=== PATIENT | female | born 1975 | race Caucasian/White ===

== ENCOUNTER 2017-04-19 18:28 | Emergency (ER) | payer MEDICARE, BC ==
[2017-04-19 19:09] VITALS: BP 115/80
[2017-04-19] MEDS ORDERED: Acetaminophen/oxyCODONE 325-5 MG Tab PO STA (19:17)
--- NOTE | 2017-04-19 19:19 | EDM.PDOC ---
ED HPI GENERAL MEDICAL PROBLEM - General Chief Complaint: Lower Extremity Injury/Pain Stated Complaint: CAT BITE Time Seen by Provider: 04/19/17 19:10 Source of Information: Reports: Patient History Limitations: Reports: No Limitations - History of Present Illness INITIAL COMMENTS - FREE TEXT/NARRATIVE: Ynes is a 41 year old female with a hx of MS who presents to the ED today with c /o red leg swelling and redness after getting bit by her cat on Saturday. Patient denies any fever/chills/nausea or vomiting. Patient reports that the spasms in her legs are worse since this started. Onset: Sudden Duration: Day(s): (3) - Related Data Allergies Allergy/AdvReac Type Severity Reaction Status Date / Time erythromycin ethylsuccinate Allergy unknow Verified 04/19/17 19:00 [From E.E.S.] Sulfa (Sulfonamide Allergy unknown Verified 04/19/17 19:00 Antibiotics) Home Meds: Home Meds Baclofen [Lioresal] 1 tab PO DAILY 04/19/17 [History] Venlafaxine [Venlafaxine HCl ER] 1 tab PO DAILY 04/19/17 [History] buPROPion HCl [Bupropion HCl Sr] 1 tab PO DAILY 04/19/17 [History] traZODone 1 tab PO DAILY 04/19/17 [History] Past Medical History Other Musculoskeletal History: MS Psychiatric History: Reports: Depression - Past Surgical History HEENT Surgical History: Reports: Tonsillectomy Social & Family History - Tobacco Use Smoking Status *Q: Never Smoker Review of Systems - Review of Systems Review Of Systems: ROS reveals no pertinent complaints other than HPI. ED EXAM, GENERAL - Physical Exam Exam: See Below Exam Limited By: No Limitations General Appearance: Alert, WD/WN, No Apparent Distress Respiratory/Chest: No Respiratory Distress, Lungs Clear Cardiovascular: Normal Peripheral Pulses, Regular Rate, Rhythm Back Exam: Normal Inspection Extremities: Normal Inspection Neurological: Alert, Oriented Psychiatric: Normal Affect, Normal Mood Skin Exam: Erythema, Other (erythema, mild swelling and three puncture wounds to right LE, consistent with celluitis, marked with skin marker, anterior gupta, approx 8 cm in diameter) Lymphatic: No Adenopathy Course - Vital Signs Last Recorded V/S: Last Vital Signs Temp 37.1 C 04/19/17 19:07 Pulse 86 04/19/17 19:07 Resp 14 04/19/17 19:07 BP 115/80 04/19/17 19:07 Pulse Ox 98 04/19/17 19:07 Ynes is a 41 year old female who presents to the ED today with c/o redness and warmth to her right lower extremity. Patient was bit by her 15 year old cat on Saturday, symptoms started this morning. Patient denies any systemic symptoms to suggest sepsis or SIRS. Patient is wheelchair bound secondary to her MS. Patient on exam is well hydrated, she is non-toxic appearing. Patient's symptoms are consistent with an acute cellulitis. I discussed this with her and recommend Augmentin. Patient reports "this never works for me". Patient denies any allergy to Augmentin. I informed patient if we do not use Augmentin , I would have to put her on both Clindamycin and Doxycycline which she is agreeable to. Patient was instructed to start both of these tonight and take as prescribed. I strongly encouraged patient to start a probiotic, Culturelle, twice daily while she is on the antibiotics. Patient can take Tylenol/ Ibuprofen as needed for pain/swelling, I did give her a small supply of Percocet for severe pain. Narcotic safety was discussed. I did inform patient that I would like her seen by her PCP by Saturday for a re-check/follow up. Reasons to return to the ED were discussed in detail. Patient was agreeable and discharged in stable condition. - Orders/Labs/Meds Meds: Medications Discontinued Medications Generic Name Dose Route Start Last Admin Trade Name Freq PRN Reason Stop Dose Admin Oxycodone/Acetaminophen 2 tab 04/19/17 19:17 04/19/17 19:21 Percocet 325-5 Mg PO 04/19/17 19:18 2 tab ONETIME STA Administration Departure - Departure Time of Disposition: 20:15 Disposition: Home, Self-Care 01 Condition: Good Clinical Impression: Cat bite involving extremity Cellulitis Qualifiers: Site of cellulitis: extremity Site of cellulitis of extremity: lower extremity Laterality: right Qualified Code(s): L03.115 - Cellulitis of right lower limb - Discharge Information Instructions: Animal Bite, [id number], Cellulitis, Adult Forms: ED Department Discharge Additional Instructions: Ynes, Take Doxycycline and Clindamycin as prescribed. I would strongly recommend a probiotic twice daily while you are on the antibiotics. I like Rupesh, this can be found at [employer] or [employer] over the counter. This will help prevent stomach upset and diarrhea. You can take Percocet as needed for severe pain. Please follow up in clinic by Saturday for re-check. If you develop any streaking up your leg, fever/chills, nausea/vomiting, please return to the ED. Take care and I hope you feel better soon.
== END 2017-04-19 20:00 | disposition home or self-care (01) ==
LOC: JP.ED 18:28
DX: S81.851A Open bite, right lower leg, initial encounter (principal); L03.115 Cellulitis of right lower limb; F32.9 Major depressive disorder, single episode, unspecified; Z79.899 Other long term (current) drug therapy; Z88.1 Allergy status to other antibiotic agents; Z88.2 Allergy status to sulfonamides; Z98.890 Other specified postprocedural states; W55.01XA Bitten by cat, initial encounter
CPT/HCPCS: 99283; A9270